=== PATIENT | female | born 1930 | race Caucasian/White ===

== ENCOUNTER 2018-11-27 21:10 | Inpatient (IN) | payer MEDICARE ==
[2018-11-27] MEDS ORDERED: Digoxin 0.5 MG/2 ML AMP ONE (21:45)
[2018-11-27] MEDS ORDERED: Digoxin 0.5 MG/2 ML AMP SLOW IVP SCH (21:45)
[2018-11-28] MEDS ORDERED: Ondansetron PF 4 MG/2 ML Vial IVP PRN (00:04)
[2018-11-28] MEDS ORDERED: Acetaminophen 325 MG TAB PO PRN (00:04)
[2018-11-28] MEDS ORDERED: Ondansetron ODT 4 MG TAB PO PRN (00:04)
[2018-11-28 02:48] VITALS: BMI 23.1
--- NOTE | 2018-11-28 04:19 | HP ---
PRIMARY CARE PHYSICIAN: Dr. Lisset Olson. CODE STATUS: Full code. TIME OF EVALUATION: 11:00 p.m. CHIEF COMPLAINT: Cough. HISTORY OF PRESENT ILLNESS: This is an 88-year-old female patient with past medical history of leukemia, on chemo, came to the hospital after having persistent cough with no clear triggers, no alleviating factors, associated with an episode of pinkeye, occasional shortness of breath . Symptoms were moderate, has been present for the past 3 to 4 days. REVIEW OF SYSTEMS: CONSTITUTIONAL: No fever, chills, or generalized weakness. RESPIRATORY: Cough, scant sputum production, shortness of breath. CARDIOVASCULAR: No chest pain or palpitation. GASTROINTESTINAL: No nausea. No vomiting abdominal pain. PROPERTY MAN: No dizziness, headache, or feeling lightheaded. GENITOURINARY: No burning on urination. EXTREMITIES: No leg swelling. All other systems were reviewed and negative except for the findings mentioned above. PAST MEDICAL HISTORY: Positive for chronic lymphocytic leukemia and hypothyroidism. PAST SURGICAL HISTORY: Tonsillectomy and adenoids. PSYCHIATRIC HISTORY: No previous psych history. SOCIAL HISTORY: No alcohol use. No drugs. No smoking history. FAMILY HISTORY: No known family history. KNOWN ALLERGIES: Aspirin and penicillin. REPORTED MEDICATIONS: 1. Atenolol. 2. Levothyroxine. 3. Imbruvica. PHYSICAL EXAMINATION: VITAL SIGNS: On presentation, blood pressure 93/72 with heart rate 135, respiratory rate was 31, temperature 98.7, pain 0/10, oxygen saturation 93%. GENERAL APPEARANCE: The patient is alert, oriented, not in acute distress. HEENT: Eyes, normal conjunctivae. Moist oral mucosa. Anicteric. No JVD. RESPIRATORY: Bilateral air entry. The patient has scattered rales. No wheezes. Symmetric expansion. CARDIOVASCULAR: Normal rate, regular rhythm. No murmurs. No gallop. No edema. ABDOMEN: Soft. Normal bowel sounds. MUSCULOSKELETAL: Baseline range of motion and strength. No tenderness. SKIN: Warm and intact. No pallor. No rash. No redness. Peripheral pulses are present. Capillary refill seems to be intact. NEUROLOGIC: No evidence of any new focal weakness. Baseline speech. Cranial nerves seems to be intact. PSYCH: The patient is in good mood. No anxiety. Optimal judgment. IMAGING STUDIES: EKG was reviewed. The patient has atrial fibrillation with rapid ventricular response at the rate of 184 on presentation, QRS 118, QT corrected 423, RBBB. Chest CT angio was done. The patient has no pulmonary embolism. The patient has dense consolidation in the base of the right upper lobe consistent with pneumonia. LABORATORY DATA: Labs are reviewed. The patient has white count of 18.1, hemoglobin 15.1, MCV 87.3, platelet count 194. Coagulations show D-dimer of 2.7. Chemistry; sodium 136, potassium 4.0, chloride 100, carbon dioxide 23, anion gap 17, BUN 24, creatinine 1.27, GFR 40, glucose 115, calcium 10.6, total bilirubin 1.4, AST 49, ALT 35, alkaline phosphatase 151. Troponin was negative. Serum total protein 7.5, albumin 3.7, globulin 3.8, albumin/globulin ratio 1.0. ASSESSMENT AND PLAN: The patient will be placed in the hospital with the following medical problems: 1. Right upper lobe pneumonia. The patient has been started on antibiotics. We will follow cultures. We will adjust treatment as per sensitivity. 2. Sepsis. The patient has tachycardia, leukocytosis, source is pneumonia. The patient is receiving hydration, antibiotics, treatment as above. 3. Atrial fibrillation with right ventricular response, this is likely triggered by sepsis. The patient has been started on Cardizem drip. We will monitor. We will consult Cardiology. 4. Chronic lymphocytic leukemia. This places the patient at high risk for complication from infection. This can be followed as outpatient once the patient is more stable. 5. Hypothyroidism. Continue hormone replacement. 6. Deep venous thrombosis prophylaxis. Job ID: [id number]
[2018-11-28 06:11] LABS: #Basophils 0.1 thou/uL (0.0-0.2); #Lymphocytes 1.7 thou/uL (1.20-3.40); #Monocytes 1.7 thou/uL (0.11-0.59); #Neutrophils 10.7 thou/uL (1.40-6.50); %Basophils 0.4 % (0.0-1.0); %Eosinophils 0.2 % (0.0-10.0); %Lymphocytes 11.9 % (21.0-51.0); %Monocytes 11.8 % (0.0-10.0); %Neutrophils 75.7 % (42.0-75.0); Hemoglobin 12.7 g/dL (12.0-16.0); Mean Corpuscular HGB CONC 30.9 g/dL (32.0-36.0); Mean Corpuscular Hemoglobin 27.8 pg (27.0-31.0); Mean Corpuscular Volume 90.2 fL (78.0-98.0); Mean Platelet Volume 9.7 fL (7.4-10.4); Platelet Count 166 thou/uL (130-400); RBC Distribution Width 13.1 % (11.5-14.5); Red Blood Cell (RBC) Count 4.56 mill/uL (4.20-5.40); White Blood Cell (WBC) Count 14.1 thou/uL (4.8-10.8)
[2018-11-28 06:32] LABS: Anion Gap 12 mmol/L (10-20); BUN (Urea Nitrogen) 19 mg/dL (9.8-20.1); Calc. Creatinine Clearance 35 mL/min (70-130); Calcium 9.4 mg/dL (7.8-10.44); Carbon Dioxide 23 mmol/L (23-31); Chloride 107 mmol/L (98-107); Estimated GFR-MDRD 51; Glucose 126 mg/dL (83-110); Potassium 3.7 mmol/L (3.5-5.1); Sodium 138 mmol/L (136-145)
[2018-11-28] MEDS ORDERED: Enoxaparin Sodium 30 MG/0.3 ML SYRINGE SC SCH (09:00)
--- NOTE | 2018-11-28 10:00 | CON ---
DATE OF CONSULTATION: HISTORY OF PRESENT ILLNESS: Carlos is an 88-year-old pleasant female from [place], who presented with several day history of cough, congestion, shortness of breath, eye swelling, low-grade fever, yellow sputum. X-ray shows right upper lung pneumonia. She received Rocephin and Zithromax, had Lovenox prior to arrival. She has never smoked. No prior history of TB, pneumonia, or bronchial asthma. PAST MEDICAL HISTORY: She has chronic lymphocytic leukemia (CLL), hypothyroidism. PAST SURGERIES: Tonsils, adenoids. ALCOHOL: None. TOBACCO: None. SOCIAL HISTORY: [place]. She is very active. Lives by herself. HOME MEDICATIONS: 1. Atenolol 25 a day. 2. Synthroid 88. 3. Imbruvica 420 once a day. ALLERGIES: PENICILLIN. REVIEW OF SYSTEMS: Otherwise 10 point negative. PHYSICAL EXAMINATION: VITAL SIGNS: Sats are 98% on room air, pulse 80, blood pressure CHEST: Rhonchi and crackles in right lung. CARDIAC: Normal S1, S2. No gallops. ABDOMEN: No masses. LABORATORY DATA: White count 14,000, H and H 12 and 41, platelet count is 166. Admission white count of 16,000. She has slight bandemia. INR is normal. Creatinine is 1.27, now is 1. Glucose is slightly elevated. Albumin is normal. IMPRESSION: 1. Right upper lung pneumonia, immunocompromised. 2. Chronic lymphocytic leukemia. 3. Never smoked. 4. Hypothyroidism. 5. Advanced age. PLAN: Sputum is being ordered for culture. Steroids to reduce duration of her illness. Continue PT, supportive care. We will follow. Consultation note, 70 minutes, 50% direct patient care. Job ID: [id number]
[2018-11-28] MEDS ORDERED: Apixaban 2.5 MG TAB PO SCH (10:15)
[2018-11-28] MEDS: methylPREDNISolone Sod Succ 40 MG VIAL IVP SCH ×2 (11:20→20:49)
[2018-11-28] MEDS ORDERED: Artificial Tears 18 DROP/0.9 ML EA EYE PRN (14:36)
[2018-11-28] MEDS ORDERED: Loratadine 10 MG TAB PO PRN (14:38)
[2018-11-28] MEDS ORDERED: Refresh Lacri-lube Opth Oint 7 GM TUBE EA EYE PRN (16:02)
--- NOTE | 2018-11-28 16:18 | CON ---
DATE OF CONSULTATION: HISTORY OF PRESENT ILLNESS: This patient is a pleasant 88-year-old woman with no known cardiac history, who presents for evaluation of dyspnea and diarrhea. The patient was noted to be in rapid irregular heart rhythm. The patient was in her usual state of health when she started having increasing dyspnea. She reports feeling markedly short of breath. She denied having any fevers or chills. The patient denied having any palpitations. The patient presented to the emergency room feeling extremely weak and was noted to be in a rapid irregular rhythm. PAST MEDICAL HISTORY: Significant for, 1. CLL. 2. Thyroid disorder. PAST SURGICAL HISTORY: She has had tonsillectomy and adenoid surgery. SOCIAL HISTORY: Nonsmoker. FAMILY HISTORY: No strong family history of heart disease. ALLERGIES: TO ASPIRIN AND PENICILLIN. MEDICATIONS: On admission; 1. Atenolol 25 daily. 2. She takes. a. Synthroid 88 mcg daily. b. Imbruvica 420 daily. PHYSICAL EXAMINATION: GENERAL: This is a thin woman, in no acute distress. VITAL SIGNS: Blood pressure 115/52. NECK: Showed no jugular venous distention. LUNGS: Clear to auscultation. HEART: Regular rate and rhythm. Normal S1 and S2 with a 2/6 systolic murmur. ABDOMEN: Nondistended. EXTREMITIES: Showed no edema. SKIN: Warm and dry. NEUROLOGIC: Nonfocal. VASCULAR: Radial pulses are 2+. LABORATORY DATA: Sodium 138, potassium 3.8, chloride 107, bicarbonate 23, BUN 19, creatinine 1.0, and glucose 126. White blood cell count 14.1, hemoglobin 12.7, hematocrit 41.1, and platelets are 166. IMAGING DATA: EKG revealed atrial fibrillation with a right bundle-branch block and nonspecific T-wave abnormality. IMPRESSION: 1. New-onset atrial fibrillation. 2. CLL. 3. Possible pneumonia. PLAN: This patient presents with new onset atrial fibrillation. She has a CHADS-VASc score of 3. It is recommended that the patient be on long-term anticoagulation therapy. The patient was started on low-dose Eliquis. The patient will be continued on Tenormin. She is being treated with IV antibiotics. We will follow this patient with you through her hospitalization. Job ID: [id number]
[2018-11-28] MEDS ORDERED: Azithromycin 500 MG in Sodium Chloride 0.9% 250 ML 250 ML IVPB SCH (20:00)
[2018-11-28] MEDS: cefTRIAXone\\ROCEPHIN 1 GM in Sodium Chloride 0.9% 100 ML IVPB SCH (20:33)
[2018-11-28] MEDS: Diltiazem HCl 125 MG, Admixture Fee 1 EACH in Sodium Chloride 0.9% 100 ML IVPB SCH (20:34)
[2018-11-28] MEDS: Atenolol 25 MG TAB PO SCH (21:06)
[2018-11-28] MEDS: Apixaban 2.5 MG TAB PO SCH (21:06)
--- NOTE | 2018-11-28 22:06 | PDOC.PN ---
- Subjective Encounter Start Date: 11/28/18 Encounter Start Time: 15:00 Patient seen and examined for Pneumonia/Afib with RVR. On Cardizem drip. No CP. SOB improving. Dry cough. No new complaints. No overnight events - Objective Resuscitation Status - Order Detail: 11/28/18 00:04 Resuscitation Status Routine Resuscitation Status: FULL: Full Resuscitation MAR Reviewed: Yes Vital Signs & Weight: Vital Signs (12 hours) Temp Pulse Pulse Pulse Pulse BP BP 11/28/18 21:06 110 H 112/57 L 11/28/18 19:00 98.4 F 11/28/18 15:00 97.9 F 11/28/18 13:47 112 H 168 H 113 H 127/77 11/28/18 10:44 97.9 F BP Pulse Ox Pulse Ox 11/28/18 21:06 11/28/18 19:00 11/28/18 15:00 11/28/18 13:47 115/75 98 100 11/28/18 10:44 Weight Admit Weight 126 lb 12.8 oz Weight 126 lb 12.8 oz Most Recent Monitor Data Heart Rate from ECG 113 NIBP 91/69 NIBP BP-Mean 76 Respiration from ECG 9 SpO2 98 I&O: 11/27/18 11/28/18 11/29/18 06:59 06:59 06:59 Intake Total 195 Output Total 350 Balance -155 Result Diagrams: 11/29/18 04:50 11/29/18 04:50 Radiology Reviewed by me: Yes (CT chest - Pneumonia) EKG Reviewed by me: Yes (Tele Afib with RVR) Phys Exam - Physical Examination Constitutional: NAD Respiratory: no wheezing Rt sided rhonchi/rales, No accessory muscle use Cardiovascular: no rub, irregular no heaves/pulsations Gastrointestinal: soft, non-tender, no distention, positive bowel sounds Musculoskeletal: no edema, pulses present Neurological: non-focal, moves all 4 limbs Psychiatric: A&O x 3 Dx/Plan - Plan IMPRESSION: Afib with RVR Sepsis with acute organ dysfunction due to HCA Pneumonia ?Gram negatives CLL Rt eye conjuntival hemorrhage Moderate PEM HTN Hypothyroidism Hypomagnesemia PLAN: Cont Cardizem drip Anticoag started - Patient understands the risk Consult Ophthal Cont Atenolol HS Cont Atbx Replace Mg AM labs Review of Systems - Review of Systems Constitutional: negative: fever, chills, sweats, weakness, malaise, other Gastrointestinal: negative: Nausea, Vomiting, Abdominal Pain, Diarrhea, Constipation, Melena, Hematochezia, Other - Medications/Allergies Allergies/Adverse Reactions: Allergies Allergy/AdvReac Type Severity Reaction Status Date / Time aspirin Allergy Verified 12/11/14 15:38 Penicillins Allergy Verified 12/11/14 15:38 Medications: Current Medications Acetaminophen (Tylenol) 650 mg PO Q4H PRN PRN Reason: Headache/Fever/Mild Pain (1-3) Apixaban (Eliquis) 2.5 mg PO BID [facility] Last Admin: 11/28/18 21:06 Dose: 2.5 mg Artificial Tears (Tears Naturale) 1 drop EA EYE PRN PRN PRN Reason: Dry Eyes Atenolol (Tenormin) 25 mg PO HS [facility] Last Admin: 11/28/18 21:06 Dose: 25 mg Diltiazem HCl 125 mg/Miscellaneous Medication 1 each/ Sodium Chloride 125 mls @ 0 mls/hr IVPB INF [facility]; Protocol Last Admin: 11/28/18 20:34 Dose: 125 mls Azithromycin 500 mg/ Sodium (Chloride) 250 mls @ 250 mls/hr IVPB Q24HR [facility] Last Admin: 11/28/18 21:00 Dose: 250 mls Ceftriaxone Sodium 1 gm/ (Sodium Chloride) 100 mls @ 200 mls/hr IVPB Q24HR [facility] Last Admin: 11/28/18 20:33 Dose: 100 mls Levofloxacin 750 mg/ Device 150 mls @ 100 mls/hr IVPB Q24HR [facility] Stop: 12/03/18 09:01 Last Admin: 11/28/18 11:20 Dose: 150 mls Levothyroxine Sodium (Synthroid) 88 mcg PO 0600 [facility] Loratadine (Claritin) 10 mg PO DAILYPRN PRN PRN Reason: Sinus Symptoms Methylprednisolone Sodium Succinate (Solu-Medrol) 40 mg IVP BID [facility] Last Admin: 11/28/18 20:49 Dose: 40 mg Mineral Oil/White Petrolatum (Lacri-Lube Opth 7 Gm Ointment) 0 gm EA EYE QIDPRN PRN PRN Reason: . Ondansetron HCl (Zofran Odt) 4 mg PO Q6H PRN PRN Reason: Nausea/Vomiting Ondansetron HCl (Zofran) 4 mg IVP Q6H PRN PRN Reason: Nausea/Vomiting Potassium Chloride (Klor-Con 10) 10 meq PO QAM[facility] Sodium Chloride (Flush - Normal Saline) 10 ml IVF Q12HR [facility] Last Admin: 11/28/18 21:08 Dose: 10 ml Sodium Chloride (Flush - Normal Saline) 10 ml IVF PRN PRN PRN Reason: Saline Flush
[2018-11-29 05:03] LABS: #Monocytes 0.2 thou/uL (0.11-0.59); #Neutrophils 7.1 thou/uL (1.40-6.50); %Basophils 0.1 % (0.0-1.0); %Eosinophils 0.1 % (0.0-10.0); %Lymphocytes 11.5 % (21.0-51.0); %Monocytes 2.6 % (0.0-10.0); %Neutrophils 85.8 % (42.0-75.0); Hemoglobin 12.1 g/dL (12.0-16.0); Mean Corpuscular HGB CONC 32.2 g/dL (32.0-36.0); Mean Corpuscular Hemoglobin 28.8 pg (27.0-31.0); Mean Corpuscular Volume 89.5 fL (78.0-98.0); Mean Platelet Volume 9.1 fL (7.4-10.4); Platelet Count 152 thou/uL (130-400); RBC Distribution Width 12.8 % (11.5-14.5); White Blood Cell (WBC) Count 8.3 thou/uL (4.8-10.8)
[2018-11-29 05:24] LABS: ALT (SGPT) 24 U/L (8-55); AST (SGOT) 18 U/L (5-34); Albumin 2.9 g/dL (3.4-4.8); Alkaline Phosphatase 115 U/L (40-150); Anion Gap 13 mmol/L (10-20); BUN (Urea Nitrogen) 21 mg/dL (9.8-20.1); Bilirubin, Total 0.4 mg/dL (0.2-1.2); Calc. Creatinine Clearance 37 mL/min (70-130); Calcium 10.1 mg/dL (7.8-10.44); Carbon Dioxide 22 mmol/L (23-31); Chloride 108 mmol/L (98-107); Estimated GFR-MDRD 54; Globulin 2.8 g/dL (2.4-3.5); Glucose 127 mg/dL (83-110); Phosphorus 2.6 mg/dL (2.3-4.7); Protein, Total 5.7 g/dL (6.0-8.3); Sodium 139 mmol/L (136-145)
[2018-11-29] MEDS ORDERED: Levothyroxine Sodium 50 MCG TAB PO SCH (06:00)
[2018-11-29] MEDS: Levothyroxine Sodium 88 MCG TAB PO SCH (06:43)
--- NOTE | 2018-11-29 09:09 | PRG ---
DATE OF SERVICE: 11/29/2018 SUBJECTIVE: This morning, she is better. OBJECTIVE: VITAL SIGNS: She is afebrile. Saturations are 95%_ on room air, blood pressure 107/55, pulse rate of 116. CHEST: No wheezing, crackles. CARDIAC: Normal S1, S2. No gallops. ABDOMEN: No masses. LABORATORY DATA: Unremarkable. White count is normal. Lytes are normal. IMPRESSION: 1. Status for pneumonia, community-acquired. 2. Possibly biological-associated pneumonitis. PLAN: Chest x-ray is being ordered. Switch over to p.o. prednisone, probably discharge home in the next couple days, if she is stable. Job ID: [id number] MTDD
[2018-11-29] MEDS: Apixaban 2.5 MG TAB PO SCH ×2 (09:49→20:21)
[2018-11-29] MEDS: predniSONE 20 MG TAB PO SCH ×2 (09:49→20:21)
[2018-11-29] MEDS: Potassium Chloride 10 MEQ TAB PO SCH (09:49)
--- NOTE | 2018-11-29 11:35 | CON ---
DATE OF CONSULTATION: HISTORY OF PRESENT ILLNESS: This is an 88-year-old female, who is followed by me for a number of years for chronic lymphocytic leukemia. Currently, she is on ibrutinib 420 mg daily that was started in August 2017. The patient is admitted with right upper lobe pneumonia. She did not give history of fever to me. The patient is also found to be in atrial fibrillation. CBC on 11/27 showed WBC count of 18.1, 75% of which were neutrophils. Hemoglobin is 15.1 and platelet count is 194,000. ASSESSMENT AND DISCUSSION: The patient's chronic lymphocytic leukemia is under control with ibrutinib. Atrial fibrillation is a known side effect of ibrutinib and I think her atrial fibrillation is related to ibrutinib. Usually, ibrutinib is not discontinued because of atrial fibrillation. Pneumonia is also one of the reported association with ibrutinib. I am somewhat concerned that she did not have fever or chills that one expects with pneumonia, even though the pneumonia is of lobar distribution. She could have usual bacterial pneumonia, but these patients are severely immunocompromised, and opportunistic infection including pneumocystis and fungal infections will have to be kept in mind. She should also have IgG level to rule out hypogammaglobulinemia that adds further to the risk of infection. Job ID: [id number]
--- NOTE | 2018-11-29 15:43 | PDOC.PN ---
- Subjective Encounter Start Date: 11/29/18 Encounter Start Time: 14:00 Patient seen and examined for Afib with RVR/Pneumonia. On Cardizem drip. No fever/chills. No new complaints. No overnight events - Objective Resuscitation Status - Order Detail: 11/28/18 00:04 Resuscitation Status Routine Resuscitation Status: FULL: Full Resuscitation MAR Reviewed: Yes Vital Signs & Weight: Vital Signs (12 hours) Temp Pulse Ox 11/29/18 11:10 97.6 F 11/29/18 07:49 98 11/29/18 07:18 97.2 F L 11/29/18 04:00 98.4 F Weight Admit Weight 126 lb 12.8 oz Weight 126 lb 12.8 oz Most Recent Monitor Data Heart Rate from ECG 80 NIBP 110/56 NIBP BP-Mean 74 Respiration from ECG 12 SpO2 99 I&O: 11/28/18 11/29/18 11/30/18 06:59 06:59 06:59 Intake Total 195 670 Output Total 350 560 Balance -155 110 Result Diagrams: 11/29/18 04:50 11/29/18 04:50 EKG Reviewed by me: Yes (Tele Afib) Phys Exam - Physical Examination Constitutional: NAD Respiratory: no wheezing Rt sided rales/rhonchi Cardiovascular: no rub, irregular Gastrointestinal: soft, non-tender, positive bowel sounds Musculoskeletal: no edema Neurological: moves all 4 limbs Dx/Plan - Plan IMPRESSION: Afib with RVR - on Cardizem drip Sepsis with acute organ dysfunction due to HCA Pneumonia ?Gram negatives CLL - Ibrutinib dced Rt eye conjuntival hemorrhage Moderate PEM HTN Hypothyroidism Hypomagnesemia - replaced Moderate PEM PLAN: Cont Cardizem drip with Eliquis Cont Atenolol HS Cont Atbx On Low dose Steroids CXR in AM AM labs Review of Systems - Review of Systems Respiratory: negative: Cough, Dry, Shortness of Breath, Hemoptysis, SOB with Excertion, Pleuritic Pain, Sputum, Wheezing Cardiovascular: negative: chest pain, palpitations, orthopnea, paroxysmal nocturnal dyspnea, edema, light headedness, other - Medications/Allergies Allergies/Adverse Reactions: Allergies Allergy/AdvReac Type Severity Reaction Status Date / Time aspirin Allergy Verified 12/11/14 15:38 Penicillins Allergy Verified 12/11/14 15:38 Medications: Current Medications Acetaminophen (Tylenol) 650 mg PO Q4H PRN PRN Reason: Headache/Fever/Mild Pain (1-3) Apixaban (Eliquis) 2.5 mg PO BID [facility] Last Admin: 11/29/18 09:49 Dose: 2.5 mg Artificial Tears (Tears Naturale) 1 drop EA EYE PRN PRN PRN Reason: Dry Eyes Atenolol (Tenormin) 25 mg PO HS [facility] Last Admin: 11/28/18 21:06 Dose: 25 mg Diltiazem HCl 125 mg/Miscellaneous Medication 1 each/ Sodium Chloride 125 mls @ 0 mls/hr IVPB INF [facility]; Protocol Last Admin: 11/28/18 20:34 Dose: 125 mls Ceftriaxone Sodium 1 gm/ (Sodium Chloride) 100 mls @ 200 mls/hr IVPB Q24HR [facility] Last Admin: 11/28/18 20:33 Dose: 100 mls Levofloxacin 750 mg/ Device 150 mls @ 100 mls/hr IVPB Q24HR [facility] Stop: 12/03/18 09:01 Last Admin: 11/29/18 09:49 Dose: 150 mls Levothyroxine Sodium (Synthroid) 88 mcg PO 0600 [facility] Last Admin: 11/29/18 06:43 Dose: 88 mcg Loratadine (Claritin) 10 mg PO DAILYPRN PRN PRN Reason: Sinus Symptoms Mineral Oil/White Petrolatum (Lacri-Lube Opth 7 Gm Ointment) 0 gm EA EYE QIDPRN PRN PRN Reason: . Ondansetron HCl (Zofran Odt) 4 mg PO Q6H PRN PRN Reason: Nausea/Vomiting Ondansetron HCl (Zofran) 4 mg IVP Q6H PRN PRN Reason: Nausea/Vomiting Potassium Chloride (Klor-Con 10) 10 meq PO QAM-WM [facility] Last Admin: 11/29/18 09:49 Dose: 10 meq Prednisone (Prednisone) 20 mg PO BID [facility] Last Admin: 11/29/18 09:49 Dose: 20 mg Sodium Chloride (Flush - Normal Saline) 10 ml IVF Q12HR [facility] Last Admin: 11/29/18 09:49 Dose: 10 ml Sodium Chloride (Flush - Normal Saline) 10 ml IVF PRN PRN PRN Reason: Saline Flush
[2018-11-29] MEDS: cefTRIAXone\\ROCEPHIN 1 GM in Sodium Chloride 0.9% 100 ML IVPB SCH (18:24)
[2018-11-29] MEDS: Atenolol 25 MG TAB PO SCH (21:00)
[2018-11-29] MEDS: Diltiazem HCl 125 MG, Admixture Fee 1 EACH in Sodium Chloride 0.9% 100 ML IVPB SCH (22:47)
[2018-11-30] MEDS: Levothyroxine Sodium 88 MCG TAB PO SCH (06:17)
--- NOTE | 2018-11-30 08:24 | RAD ---
XR Chest Pa Lat STANDARD History: [Pneumonia] Comparison: Chest radiograph November 27, 2018 Findings: Mild interval size decrease right upper lobe opacity which is wedge-shaped. Small left effu kerri and small right effusion. No pneumothorax. Impression: 1. Mild interval size decrease of the right upper lobe consolidation. Continued follow-up is recommen ded. Left upper lobe consolidation is not well seen. 2. Mildly enlarging layering pleural effusions. Continued follow-up is recommended.
--- NOTE | 2018-11-30 08:39 | PRG ---
DATE OF SERVICE: 11/30/2018 SUBJECTIVE: Carlos is an 88-year-old female. This morning, she is better. OBJECTIVE: VITAL SIGNS: Temperature 98.7, blood pressure 97/58, respiratory rate 18. CHEST: Decreased breath sounds. No wheezing. CARDIAC: Normal S1, S2. No gallop. ABDOMEN: No masses. LABORATORY DATA: X-ray shows improvement of the right upper lung pneumonia. Sputum so far negative. IMPRESSION: Right upper lung pneumonia. Underlying CLL, on ibrutinib 420 mg daily, biological medication, supposed to cause pneumonitis, though doubt biological cause of her infiltrate. PLAN: She has improved. I have switched over to oral antibiotics. Hopefully, she will be discharged home in the next several days, if she remains stable. Job ID: [id number] [facility]
[2018-11-30] MEDS: predniSONE 20 MG TAB PO SCH ×2 (09:50→20:46)
[2018-11-30] MEDS: Potassium Chloride 10 MEQ TAB PO SCH (09:50)
[2018-11-30] MEDS: Apixaban 2.5 MG TAB PO SCH ×2 (09:50→20:45)
--- NOTE | 2018-11-30 09:59 | PDOC.PN ---
- Subjective Encounter Start Date: 11/30/18 Encounter Start Time: 09:00 Patient seen and examined for Afib/Pneumonia. No new complaints. No overnight events - Objective Resuscitation Status - Order Detail: 11/28/18 00:04 Resuscitation Status Routine Resuscitation Status: FULL: Full Resuscitation MAR Reviewed: Yes Vital Signs & Weight: Vital Signs (12 hours) Temp Pulse Ox 11/30/18 07:16 99 11/30/18 07:14 97.6 F 11/30/18 03:33 98.1 F 11/29/18 23:31 98.4 F Weight Admit Weight 126 lb 12.8 oz Weight 126 lb 12.8 oz Most Recent Monitor Data Heart Rate from ECG 106 NIBP 101/66 NIBP BP-Mean 77 Respiration from ECG 16 SpO2 91 I&O: 11/29/18 11/30/18 12/01/18 06:59 06:59 06:59 Intake Total 670 1312 Output Total 560 500 Balance 110 812 Result Diagrams: 11/29/18 04:50 11/29/18 04:50 EKG Reviewed by me: Yes (Tele Afib) Phys Exam - Physical Examination Constitutional: NAD Respiratory: no wheezing, no rhonchi Scat rales at bases Cardiovascular: no rub, irregular Gastrointestinal: soft, positive bowel sounds Musculoskeletal: no edema Neurological: moves all 4 limbs Dx/Plan - Plan IMPRESSION: Afib with RVR - rate controlled Sepsis with acute organ dysfunction due to HCA Pneumonia ?Gram negatives CLL - Ibrutinib dced due to Pnemonia/Afib/diarrhea Rt eye conjuntival hemorrhage - evaluated by Dr Reece this admission Moderate PEM HTN Hypothyroidism Hypomagnesemia - replaced Moderate PEM PLAN: Cont Cardizem drip/Atenolol HS Cont Eliquis Cont Atbx with low dose Steroids AM labs Review of Systems - Review of Systems Respiratory: negative: Cough, Dry, Shortness of Breath, Hemoptysis, SOB with Excertion, Pleuritic Pain, Sputum, Wheezing Cardiovascular: negative: chest pain, palpitations, orthopnea, paroxysmal nocturnal dyspnea, edema, light headedness, other - Medications/Allergies Allergies/Adverse Reactions: Allergies Allergy/AdvReac Type Severity Reaction Status Date / Time aspirin Allergy Verified 12/11/14 15:38 Penicillins Allergy Verified 12/11/14 15:38 Medications: Current Medications Acetaminophen (Tylenol) 650 mg PO Q4H PRN PRN Reason: Headache/Fever/Mild Pain (1-3) Apixaban (Eliquis) 2.5 mg PO BID [facility] Last Admin: 11/30/18 09:50 Dose: 2.5 mg Artificial Tears (Tears Naturale) 1 drop EA EYE PRN PRN PRN Reason: Dry Eyes Atenolol (Tenormin) 25 mg PO HS [facility] Last Admin: 11/29/18 21:00 Dose: Not Given Diltiazem HCl 125 mg/Miscellaneous Medication 1 each/ Sodium Chloride 125 mls @ 0 mls/hr IVPB INF [facility]; Protocol Last Admin: 11/29/18 22:47 Dose: 125 mls Levofloxacin (Levaquin) 500 mg PO 0600 [facility] Levothyroxine Sodium (Synthroid) 88 mcg PO 0600 [facility] Last Admin: 11/30/18 06:17 Dose: 88 mcg Loratadine (Claritin) 10 mg PO DAILYPRN PRN PRN Reason: Sinus Symptoms Mineral Oil/White Petrolatum (Lacri-Lube Opth 7 Gm Ointment) 0 gm EA EYE QIDPRN PRN PRN Reason: . Ondansetron HCl (Zofran Odt) 4 mg PO Q6H PRN PRN Reason: Nausea/Vomiting Ondansetron HCl (Zofran) 4 mg IVP Q6H PRN PRN Reason: Nausea/Vomiting Potassium Chloride (Klor-Con 10) 10 meq PO QAM-WM [facility] Last Admin: 11/30/18 09:50 Dose: 10 meq Prednisone (Prednisone) 20 mg PO BID [facility] Last Admin: 11/30/18 09:50 Dose: 20 mg Sodium Chloride (Flush - Normal Saline) 10 ml IVF Q12HR [facility] Last Admin: 11/30/18 09:51 Dose: 10 ml Sodium Chloride (Flush - Normal Saline) 10 ml IVF PRN PRN PRN Reason: Saline Flush
[2018-11-30] MEDS: Digoxin 0.5 MG/2 ML AMP SLOW IVP SCH ×2 (15:25→17:20)
[2018-11-30] MEDS: Atenolol 25 MG TAB PO SCH (20:45)
[2018-12-01 05:28] LABS: Band 4 % (5-11); Hemoglobin 13.6 g/dL (12.0-16.0); Lymphocytes 10 % (21-51); MDiff Complete? YES; Mean Corpuscular HGB CONC 31.9 g/dL (32.0-36.0); Mean Corpuscular Hemoglobin 28.7 pg (27.0-31.0); Mean Corpuscular Volume 89.9 fL (78.0-98.0); Mean Platelet Volume 8.4 fL (7.4-10.4); Monocytes 1 % (0-10); Neutrophil 85 % (42-75); Platelet Count 247 thou/uL (130-400); Platelet Morphology Comment Appears Adequate; RBC Distribution Width 13.1 % (11.5-14.5); RBC Morphology Normal; Red Blood Cell (RBC) Count 4.75 mill/uL (4.20-5.40); White Blood Cell (WBC) Count 13.1 thou/uL (4.8-10.8)
[2018-12-01 05:40] LABS: Anion Gap 9 mmol/L (10-20); BUN (Urea Nitrogen) 31 mg/dL (9.8-20.1); Calc. Creatinine Clearance 35 mL/min (70-130); Calcium 9.7 mg/dL (7.8-10.44); Carbon Dioxide 27 mmol/L (23-31); Chloride 106 mmol/L (98-107); Estimated GFR-MDRD 51; Glucose 141 mg/dL (83-110); Potassium 4.3 mmol/L (3.5-5.1); Sodium 138 mmol/L (136-145)
[2018-12-01] MEDS: Levothyroxine Sodium 88 MCG TAB PO SCH (06:24)
[2018-12-01] MEDS: Potassium Chloride 10 MEQ TAB PO SCH (09:18)
[2018-12-01] MEDS: Digoxin 0.125 MG TAB PO SCH (09:19)
[2018-12-01] MEDS: Apixaban 2.5 MG TAB PO SCH ×2 (09:19→20:53)
[2018-12-01] MEDS: predniSONE 20 MG TAB PO SCH ×2 (09:19→20:53)
--- NOTE | 2018-12-01 11:39 | PDOC.CTH ---
Cardiology Progress Note - Subjective She feels better. No chest pain. HR in the 60's. - Objective Vital Signs Temp Pulse 12/01/18 10:19 97.3 F L 12/01/18 09:19 99 12/01/18 07:10 97.5 F L 12/01/18 03:35 98.2 F Admit Weight 126 lb 12.8 oz Weight 130 lb 5 oz 11/30/18 12/01/18 12/02/18 06:59 06:59 06:59 Intake Total 1312 1335 Output Total 500 450 Balance 812 885 - Physical Examination General/Neuro: alert & oriented x3, NAD Neck: no JVD present Lungs: CTA, unlabored respirations Heart: RRR Abdomen: NT/ND Extremities: other: (no edema) - Telemetry Telemetry Rhythm: Afib HR 60's. - Labs Result Diagrams: 12/01/18 04:37 12/01/18 04:37 - Assessment/Plan 1. Afib RVR, rate controlled now. 2. CLL 3. Pneumonia PLAN: - Continue rate control. - Continue Eliquis for stroke prophylaxis. - Home any time from cardiac perspective.
--- NOTE | 2018-12-01 12:00 | PRG ---
DATE OF SERVICE: 12/01/2018 SUBJECTIVE: Ms. Gonzalez is doing fairly well and wants to go home. OBJECTIVE: VITAL SIGNS: Temperature is 97.5, pulse 83, blood pressure 102/49, O2 saturations 96% on room air. HEENT: Unremarkable. NECK: No JVD. CHEST: Clear to auscultation. CARDIAC: S1, S2. Regular. ABDOMEN: Soft. EXTREMITIES: No edema. LABORATORY DATA: White blood cell count 13.1, hematocrit 46.7, and platelet count 247. Sodium 138, potassium 4.3, BUN 31, creatinine 1.0, glucose 141. ASSESSMENT: 1. Right upper lobe pneumonia. 2. Chronic lymphocytic leukemia. PLAN: This patient is approaching the point, where she can go home. She has been converted over to oral antibiotics. I would treat her for about 10 days total. I would wean the prednisone over couple weeks. She is safe for transfer to the floor. She can probably go home by tomorrow morning. Job ID: [id number]
--- NOTE | 2018-12-01 12:20 | PDOC.PN ---
- Subjective Encounter Start Date: 12/01/18 Encounter Start Time: 12:19 Patient seen and examined, no new issues or complaints, no family at bedside. All questions answered. - Objective Resuscitation Status - Order Detail: 11/28/18 00:04 Resuscitation Status Routine Resuscitation Status: FULL: Full Resuscitation Vital Signs & Weight: Vital Signs (12 hours) Temp Pulse Pulse Ox 12/01/18 10:19 97.3 F L 12/01/18 09:19 99 12/01/18 08:00 100 12/01/18 07:10 97.5 F L 12/01/18 03:35 98.2 F Weight Admit Weight 126 lb 12.8 oz Weight 130 lb 5 oz Most Recent Monitor Data Heart Rate from ECG 81 NIBP 106/55 NIBP BP-Mean 72 Respiration from ECG 7 SpO2 94 I&O: 11/30/18 12/01/18 12/02/18 06:59 06:59 06:59 Intake Total 1312 1335 Output Total 500 450 Balance 812 885 Result Diagrams: 12/01/18 04:37 12/01/18 04:37 Phys Exam - Physical Examination Constitutional: NAD HEENT: PERRLA, moist MMs, sclera anicteric Neck: no nodes, no JVD, supple Respiratory: no wheezing, no rales, no rhonchi Cardiovascular: RRR, no significant murmur, no rub Gastrointestinal: soft, non-tender, no distention Musculoskeletal: pulses present, edema present (trace) Dx/Plan (1) Hypothyroidism Code(s): E03.9 - HYPOTHYROIDISM, UNSPECIFIED Status: Acute (2) Atrial fibrillation Code(s): I48.91 - UNSPECIFIED ATRIAL FIBRILLATION Status: Acute (3) Hypertension Code(s): I10 - ESSENTIAL (PRIMARY) HYPERTENSION Status: Acute (4) CLL (chronic lymphocytic leukemia) Code(s): C91.90 - LYMPHOID LEUKEMIA, UNSPECIFIED NOT HAVING ACHIEVED REMISSION Status: Acute (5) Anemia Code(s): D64.9 - ANEMIA, UNSPECIFIED Status: Acute - Plan * transfer to telemetry * cardio following * HR better controlled * labs in AM * cont abx * case and plan d/w patient at length, she understood and agreed with this plan
[2018-12-01] MEDS: Atenolol 25 MG TAB PO SCH (20:53)
[2018-12-02] MEDS: Levothyroxine Sodium 88 MCG TAB PO SCH (05:48)
--- NOTE | 2018-12-02 09:12 | PDOC.EVN ---
Event Note - Event Note Event Note: DC SUMMARY #[id number]
[2018-12-02] MEDS: Apixaban 2.5 MG TAB PO SCH (09:56)
[2018-12-02] MEDS: Potassium Chloride 10 MEQ TAB PO SCH (09:56)
[2018-12-02] MEDS: Digoxin 0.125 MG TAB PO SCH (09:56)
[2018-12-02] MEDS: predniSONE 20 MG TAB PO SCH (09:57)
[2018-12-02 11:02] VITALS: TEMP 97.5
--- NOTE | 2018-12-02 11:09 | PRG ---
DATE OF SERVICE: 12/02/2018 SUBJECTIVE: The patient is sitting up in a chair. No complaints. OBJECTIVE: VITAL SIGNS: Temperature is 97.1, pulse 78, and blood pressure 117/62. HEENT: Unremarkable. NECK: No JVD. LUNGS: Clear. CARDIAC: S1 and S2. Irregularly irregular. ABDOMEN: Soft and nontender. EXTREMITIES: No edema. LABORATORY DATA: No labs were done today. ASSESSMENT: 1. Atrial fibrillation. 2. Pulmonary edema, which is resolved. 3. Chronic lymphocytic leukemia. PLAN: The patient is going home on rate control and anticoagulation. There do not appear to be any active pulmonary issues at this time. We will sign off the case, please recall if further assistance needed. Job ID: [id number]
[2018-12-02 13:36] VITALS: BP 119/56
--- NOTE | 2018-12-02 19:52 | DIS ---
DATE OF ADMISSION: 11/27/2018 DATE OF DISCHARGE: 12/02/2018 DIAGNOSES: Atrial fibrillation with rapid ventricular response, right upper lobe pneumonia, sepsis, chronic lymphocytic leukemia, hypothyroidism. DISCHARGE DIAGNOSES: Right upper lobe pneumonia, improving. Sepsis, resolved. Atrial fibrillation, stable. Chronic lymphocytic leukemia and hypothyroidism. HOSPITAL COURSE: This is an 88-year-old female, with past medical history of leukemia, on chemo, presented to the hospital with persistent cough, was admitted to the Internal Medicine Team followed by Pulmonary and Cardiology. The patient was monitored in the ICU, had Oncology evaluation performed as well, was started on antibiotics. White blood cell count was better. The patient was transitioned to oral antibiotics along with prednisone, stabilized from a cardiac perspective and a Pulmonary perspective. The patient was cleared by Cardiology and Pulmonary Critical Care at point in time of discharge. The patient was to follow up with her oncologist and PCP within 2 to 3 days post discharge and was stable at time of discharge. The patient's case and plan discussed with the patient at length. She understood and agreed to this plan. DISPOSITION: Home. FOLLOWUP: Follow up with PCP and Oncology within 2 to 3 days. MEDICATIONS: See MAR. ACTIVITY: As tolerated with assistance as needed. DIET: Low-fat, low-calorie, high-fiber diet. CONDITION: Stable. PROGNOSIS: Good. The patient discharged with antibiotics. Case and plan discussed with the patient at length. She understood and agreed to this plan. Job ID: [id number]
== END 2018-12-02 13:33 | disposition home or self-care (01) | DRG 871 ==
LOC: ERS 21:10 → IMCU/EMU 22:25
PROVIDERS: ADMIT Hospitalist; ATTEND Hospitalist
DX: A41.9 Sepsis, unspecified organism (principal); J18.9 Pneumonia, unspecified organism; C91.10 Chronic lymphocytic leukemia of B-cell type not having achieved remission; E44.0 Moderate protein-calorie malnutrition; Y95 Nosocomial condition; E03.9 Hypothyroidism, unspecified; I48.91 Unspecified atrial fibrillation; R65.20 Severe sepsis without septic shock; I10 Essential (primary) hypertension; D64.9 Anemia, unspecified; E83.42 Hypomagnesemia; H11.31 Conjunctival hemorrhage, right eye; Z68.23 Body mass index [BMI] 23.0-23.9, adult; Z88.0 Allergy status to penicillin; Z79.899 Other long term (current) drug therapy; Z88.8 Allergy status to other drugs, medicaments and biological substances
CPT/HCPCS: 36415; 71046; 80048; 80053; 83735; 84100; 85025; 87070; 87205; 93005; 93010; 93306; 96361; 96374; 96375; J0456; J0696; J1160; J1650; J1956; J2920; J3475; J3490; J7050; J7512

== ENCOUNTER 2018-12-11 00:40 | Emergency (ER) | payer MEDICARE ==
[2018-12-11] MEDS ORDERED: Lidocaine Viscous Sol 2% 15 ml UD Cup ONE (02:08)
[2018-12-11 02:38] LABS: #Basophils 0.1 thou/uL (0.0-0.2); #Eosinphils 0.1 thou/uL (0.0-0.7); #Lymphocytes 2.9 thou/uL (1.20-3.40); %Basophils 0.9 % (0.0-1.0); %Eosinophils 0.5 % (0.0-10.0); %Lymphocytes 20.6 % (21.0-51.0); %Monocytes 6.8 % (0.0-10.0); %Neutrophils 71.1 % (42.0-75.0); Hemoglobin 13.6 g/dL (12.0-16.0); Mean Corpuscular HGB CONC 32.1 g/dL (32.0-36.0); Mean Corpuscular Hemoglobin 28.9 pg (27.0-31.0); Mean Platelet Volume 6.9 fL (7.4-10.4); Platelet Count 170 thou/uL (130-400); RBC Distribution Width 13.9 % (11.5-14.5); Red Blood Cell (RBC) Count 4.71 mill/uL (4.20-5.40); White Blood Cell (WBC) Count 14.1 thou/uL (4.8-10.8)
[2018-12-11 02:52] LABS: ALT (SGPT) 11 U/L (8-55); AST (SGOT) 11 U/L (5-34); Albumin 3.1 g/dL (3.4-4.8); Alkaline Phosphatase 70 U/L (40-150); Anion Gap 12 mmol/L (10-20); BUN (Urea Nitrogen) 13 mg/dL (9.8-20.1); Bilirubin, Total 0.7 mg/dL (0.2-1.2); Calc. Creatinine Clearance 0 mL/min (70-130); Calcium 9.1 mg/dL (7.8-10.44); Carbon Dioxide 30 mmol/L (23-31); Chloride 103 mmol/L (98-107); Estimated GFR-MDRD 43; Globulin 2.2 g/dL (2.4-3.5); Glucose 96 mg/dL (83-110); Potassium 3.8 mmol/L (3.5-5.1); Protein, Total 5.3 g/dL (6.0-8.3); Sodium 141 mmol/L (136-145)
--- NOTE | 2018-12-11 07:22 | CT ---
ABDOMEN AND PELVIS CT WITH CONTRAST: INDICATION: New onset rectal pain. COMPARISON: No prior imaging comparison. FINDINGS: Bilateral pleural fluid is present, incompletely imaged. There is adjacent interstitial and ground-g lass opacity of the visualized lung bases. Enlargement of the spleen is demonstrated. There is a jama ggestion of a contracted, slightly thick-walled gallbladder, although this is immediately adjacent to loops of similar-appearing unopacified fluid-filled bowel. It is difficult to reliably characterize , although there is a suggestion of multifocal cholelithiasis. There are splenic varices. Slightly nodular hepatic contour is seen. Renal parenchymal atrophy is present with cortical thinning most no table on the right. There is a vague subcentimeter hypodensity at the superior pole of the left kidn ey, too small to further characterize. There is incomplete assessment of bowel without enteric contr ast. Moderate retained fecal material in the colon is present. No free air. No pancreatic inflamma tion. Diffuse atherosclerosis is seen. No evidence of adrenal mass. Diffuse osseous degenerative ch geri present. There is a small approximately 1 cm nodular density of the ventral left lower abdominal subcutaneous fat, nonspecific. IMPRESSION: 1. Cholelithiasis with contrasted thick-walled gallbladder. This is incompletely assessed. Dedicat ed gallbladder ultrasound is recommended. 2. Mild nodular contour of the liver indicating cirrhotic morphology. 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 3. Bibasilar pleural and parenchymal disease. Correlate with followup chest radiograph imaging. 4. Additional details are described above. POS: BUCK
[2018-12-11] MEDS ORDERED: ISOVUE-370 76%-LOCM 1 ML ONE (09:01)
== END 2018-12-11 06:22 | disposition home or self-care (01) ==
LOC: ERS 00:40
DX: L25.9 Unspecified contact dermatitis, unspecified cause (principal); E03.9 Hypothyroidism, unspecified; I48.91 Unspecified atrial fibrillation; Z79.899 Other long term (current) drug therapy; Z79.01 Long term (current) use of anticoagulants
CPT/HCPCS: 36415; 74177; 80053; 85025; Q9966

== ENCOUNTER 2020-05-18 13:46 | Outpatient (CLI) | payer MEDICARE ==
--- NOTE | 2020-05-18 15:03 | ULT ---
Exam: Thyroid ultrasound HISTORY: Thyroid nodule. COMPARISON: None. FINDINGS: Thyroid isthmus: 0.5 cm Right thyroid lobe: 2.7 x 2.2 x 4.7 cm Left thyroid lobe: 2.2 x 2.1 x 5.2 cm There is diffuse heterogeneity throughout the thyroid gland. Thyroid nodules: Left thyroid lobe: 0.5 x 0.6 x 0.3 cm cystic nodule in the mid pole. 1.8 x 1.5 x 1.4 cm solid hyperec hoic nodule in the lower pole. IMPRESSION: Hypoechoic solid nodule in the lower pole left thyroid lobe. TI-RADS score TR3 - mildly suspicious. Follow-up imaging in one year. Transcribed Date/Time: 05/18/2020 4:03 PM
== END 2020-05-18 13:47 | disposition home or self-care (01) ==
LOC: BICULT 13:46
PROVIDERS: ATTEND Internal Medicine Cardiovascular Disease
DX: E04.1 Nontoxic single thyroid nodule (principal)
CPT/HCPCS: 76536